=== PATIENT | female | born 1970 | race Caucasian/White ===

== ENCOUNTER → 2016-12-16 | Outpatient (CLI) | payer OTHER ==
[~2016-12-16] MED LIST: Aspirin; IBUP100SUS PO; Suboxone PO; VICO5TAB16 PO; Zyprexa PO; Zyrtec PO
== END ==
LOC: M OUTALCOH 09:51
PROVIDERS: ATTEND Psychiatry & Neurology Psychiatry
DX: F14.20 Cocaine dependence, uncomplicated (principal); F11.20 Opioid dependence, uncomplicated; F12.20 Cannabis dependence, uncomplicated

== ENCOUNTER 2017-01-13 14:00 | Outpatient (RCR) | payer OTHER | END 2017-01-14 | LOC: M OUTALCOH 14:00 | PROVIDERS: ATTEND Psychiatry & Neurology Psychiatry | DX: F14.20 Cocaine dependence, uncomplicated (principal); F12.20 Cannabis dependence, uncomplicated; F11.20 Opioid dependence, uncomplicated; F17.200 Nicotine dependence, unspecified, uncomplicated ==

== ENCOUNTER 2017-02-11 08:00 | Outpatient (RCR) | payer OTHER | END 2017-02-13 | LOC: M OUTALCOH 08:00 | PROVIDERS: ATTEND Psychiatry & Neurology Psychiatry | DX: F14.20 Cocaine dependence, uncomplicated (principal); F12.20 Cannabis dependence, uncomplicated; F11.20 Opioid dependence, uncomplicated; F17.200 Nicotine dependence, unspecified, uncomplicated ==

== ENCOUNTER → 2017-04-16 | Outpatient (CLI) | payer OTHER ==
[~2017-04-16] MED LIST changes: +AMLO2.5T PO; +ASPI81TA85 PO; +CLON0.5T PO; +GABA-283 PO; +LATU1TAB PO; +LISI40TAB PO
--- NOTE | 2017-04-16 09:14 | REP ---
Clinical: Chest pain . Comparison: 05/02/2014 . Technique: PA and lateral. Findings: The mediastinum and cardiac silhouette are normal. The lung hoffman are clear and without acute consolidation, effusion, or pneumothorax. The skeletal structures are intact and normal. Impression: 1. No acute cardiopulmonary process. Signed by Rodrigo Barboza MD 04/16/2017 09:06 A
[2017-04-16 10:25] LABS: BASO # 0.1 K/mm3 (0.0-0.2); BASO % 0.7 % (0.0-1.0); EOS # 0.2 K/mm3 (0.0-0.50); EOS % 1.7 % (0.0-3.0); LYMPH # 2.6 K/mm3 (1.5-4.5); MEAN CORPUSCULAR HEMOGLOBIN 32.2 pg (27.0-33.0); MEAN CORPUSCULAR HGB CONC 34.6 g/dl (32.0-36.5); MONO # 0.5 K/mm3 (0.0-0.8); MONO % 4.8 % (0.0-5.0); NEUTROPHILS # 6.8 K/mm3 (1.8-7.7); RED CELL DISTRIBUTION WIDTH 12.3 % (11.5-14.5); WHITE BLOOD COUNT 10.4 K/mm3 (4.0-10.0)
[2017-04-16 11:04] LABS: ALBUMIN 3.8 GM/DL (3.2-5.2); ALBUMIN/GLOBULIN RATIO 1.15 (1.00-1.93); ALKALINE PHOSPHATASE 108 U/L (45-117); ALT/SGPT 17 U/L (12-78); ANION GAP 7 MEQ/L (8-16); AST/SGOT 13 U/L (15-37); BILIRUBIN,TOTAL 0.3 MG/DL (0.2-1.0); BLOOD UREA NITROGEN 12 MG/DL (7-18); CALCIUM LEVEL 9.3 MG/DL (8.5-10.1); CARBON DIOXIDE LEVEL 27 MEQ/L (21-32); CHLORIDE LEVEL 107 MEQ/L (98-107); CHOLESTEROL LEVEL 173 MG/DL (<200); CREATININE FOR GFR 0.78 MG/DL (0.55-1.02); FERRITIN 84 NG/ML (8-252); FREE T4 1.13 NG/DL (0.76-1.46); GLOMERULAR FILTRATION RATE > 60.0 (>58); GLUCOSE, FASTING 94 MG/DL (70-105); POTASSIUM SERUM 4.7 MEQ/L (3.5-5.1); SODIUM LEVEL 141 MEQ/L (136-145); T UPTAKE 35 % (30-39); TOTAL PROTEIN 7.1 GM/DL (6.4-8.2); TRIGLYCERIDES LEVEL 75 MG/DL (<150)
--- NOTE | 2017-04-16 14:54 | ECGEPIP ---
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
[2017-04-19 00:10] LABS: Lyme Disease IgG/IgM Antibodie <0.91 ISR (0.00-0.90); Lyme Disease IgM Ab Quantitati <0.80 index (0.00-0.79)
[2017-04-21 10:32] LABS: ALBUMIN % 59.1 % (55.8-66.1); GAMMA GLOBULIN % 11.3 % (11.1-18.8)
== END ==
LOC: M LAB 08:22
PROVIDERS: ATTEND Physician Assistant Medical
DX: R07.9 Chest pain, unspecified (principal); R53.83 Other fatigue; R00.1 Bradycardia, unspecified; I25.2 Old myocardial infarction

== ENCOUNTER 2017-06-22 09:09 | Emergency (ER) | payer OTHER ==
[~2017-06-22] VITALS: Ht 163.8 cm; Wt 53.8 kg
[2017-06-22 09:09] VITALS: BP 155/90
[~2017-06-22 09:09] MED LIST changes: -AMLO2.5T PO; -ASPI81TA85 PO; -CLON0.5T PO; -GABA-283 PO; -LATU1TAB PO; -LISI40TAB PO
[2017-06-22] MEDS ORDERED: CLON0.5T PO (09:35)
[2017-06-22] MEDS ORDERED: LATU1TAB PO (09:35)
[2017-06-22] MEDS ORDERED: GABA-283 PO (09:35)
[2017-06-22] MEDS ORDERED: ASPI81TA85 PO (09:35)
[2017-06-22] MEDS ORDERED: LISI40TAB PO (09:35)
[2017-06-22] MEDS ORDERED: AMLO2.5T PO (09:35)
--- NOTE | 2017-06-22 10:05 | ED PDOC ---
Post-Departure Follow-Up PT STATES, "I'M VERY SCARED RIGHT NOW." PT STATES HAS HAD SOME BLOOD WORK DONE WITH HER PCP, DEB. RUSH, AND DID NOT FOLLOW THROUGH WITH A SPECIFIC TEST FOR MULTIPLE MYELOMA. PT STATES THE TEST WAS SENT HERE AND WANTS TO HAVE THE TESTING DONE TODAY IN THE ER. ADVISED THAT THIS IS NOT AN ER APPROPRIATE TEST AND IF THE ORDER WAS SENT TO THIS HOSPITAL, SHE SHOULD GO TO THE OUTPATIENT LAB TO HAVE THIS TEST DRAWN. PT STATES HAS FOLLOW UP WITH ALVINA RUSH THIS WEEK FROM THE BLOOD WORK SHE ALREADY HAD TAKEN. PT BELIEVES SHE HAS MULTIPLE MYELOMA BECAUSE SHE WAS BLEEDING FROM HER EARS LAST NIGHT. PT VERY ANXIOUS AND TEARFUL DURING ENCOUNTER. OSMAR LYNN PA-C Jun 22, 2017 10:05
== END 2017-06-22 10:10 | disposition home or self-care (01) ==
LOC: M ED 09:09
DX: F41.9 Anxiety disorder, unspecified (principal); H92.03 Otalgia, bilateral; I10 Essential (primary) hypertension; F31.9 Bipolar disorder, unspecified; K50.90 Crohn's disease, unspecified, without complications; Z86.73 Personal history of transient ischemic attack (TIA), and cerebral infarction without residual deficits; Z79.899 Other long term (current) drug therapy; Z79.891 Long term (current) use of opiate analgesic; Z79.82 Long term (current) use of aspirin; Z88.0 Allergy status to penicillin; Z88.7 Allergy status to serum and vaccine; L23.1 Allergic contact dermatitis due to adhesives; Z91.040 Latex allergy status; Z91.030 Bee allergy status; F17.210 Nicotine dependence, cigarettes, uncomplicated

== ENCOUNTER → 2017-07-08 | Outpatient (CLI) | payer OTHER ==
[~2017-07-08] MED LIST changes: +AMLO2.5T PO; +ASPI81TA85 PO; +CLON0.5T PO; +GABA-283 PO; +LATU1TAB PO; +LISI40TAB PO
--- NOTE | 2017-07-08 09:05 | REP ---
Complete abdominal ultrasound: The the patient has a cholecystectomy. There is no intrahepatic or extrahepatic biliary duct dilatation, the common duct measures 3.7 mm in diameter. The hepatic parenchyma is unremarkable except for A focal hyperechoic subcapsular lesion inferiorly in the midline measuring 2.4 x 1.2 cm. By ultrasound. This may be an hemangioma. On the CT of the abdomen pelvis dated 11/17/2013. No liver lesion is identified. This lesion may have been isointense to hepatic parenchyma by CT. Therefore, I would recommend follow-up MRI for further evaluation of this finding for more assurance. The visualized portion of the pancreatic head is unremarkable. The body and tail are obscured by bowel gas. The spleen is normal size. I suspect there are tiny splenic calcified granulomas. The right and left kidneys are normal size. There is no renal hydronephrosis, calculus, mass or cyst on the right on the left. There is no abdominal aortic aneurysm. There is no ascites. Impression: Cholecystectomy. No biliary duct dilatation. The body and tail of the pancreas are obscured. Hyperechoic lesion in the midline of the liver, subcapsular, not visible on the comparison CT. This could represent an hemangioma, however other hepatic masses are not absolutely excluded by ultrasound. I would recommend follow-up MRI for more assurance. Otherwise, negative complete abdominal ultrasound. No Signed by Ramo Alvarez MD 07/08/2017 08:56 A
[2017-07-08 09:44] LABS: MEAN CORPUSCULAR HEMOGLOBIN 32.8 pg (27.0-33.0); MEAN CORPUSCULAR HGB CONC 35.8 g/dl (32.0-36.5); MEAN CORPUSCULAR VOLUME 91.7 fl (80.0-96.0); RED CELL DISTRIBUTION WIDTH 12.4 % (11.5-14.5)
[2017-07-08 10:12] LABS: EOSINOPHILS 1 % (0-5)
[2017-07-08 10:13] LABS: ALBUMIN/GLOBULIN RATIO 1.38 (1.00-1.93); ALKALINE PHOSPHATASE 118 U/L (45-117); ALT/SGPT 25 U/L (12-78); ANION GAP 7 MEQ/L (8-16); AST/SGOT 15 U/L (15-37); BILIRUBIN,TOTAL 0.6 MG/DL (0.2-1.0); BLOOD UREA NITROGEN 9 MG/DL (7-18); CALCIUM LEVEL 9.1 MG/DL (8.5-10.1); CARBON DIOXIDE LEVEL 30 MEQ/L (21-32); CHLORIDE LEVEL 105 MEQ/L (98-107); CHOLESTEROL LEVEL 180 MG/DL (<200); CREATININE FOR GFR 0.79 MG/DL (0.55-1.02); FERRITIN 109 NG/ML (8-252); GLOMERULAR FILTRATION RATE > 60.0 (>58); GLUCOSE, FASTING 82 MG/DL (70-105); POTASSIUM SERUM 4.2 MEQ/L (3.5-5.1); SODIUM LEVEL 142 MEQ/L (136-145); TOTAL PROTEIN 6.9 GM/DL (6.4-8.2); TRIGLYCERIDES LEVEL 89 MG/DL (<150)
== END ==
LOC: M RAD 08:13 → M LAB 08:13
PROVIDERS: ATTEND Physician Assistant Medical
DX: R10.9 Unspecified abdominal pain (principal); R19.7 Diarrhea, unspecified

== ENCOUNTER → 2017-11-01 | Outpatient (CLI) | payer OTHER | LOC: M LAB 09:55 | DX: Z02.83 Encounter for blood-alcohol and blood-drug test (principal) | CPT/HCPCS: 80348 ==

== ENCOUNTER 2017-12-14 06:55 | Emergency (ER) | payer OTHER ==
[2017-12-14] MEDS: LORATADINE 10 MG TAB PO (08:15)
== END 2017-12-14 09:12 | disposition home or self-care (01) ==
LOC: M ED 06:55
DX: S60.561A Insect bite (nonvenomous) of right hand, initial encounter (principal); S60.562A Insect bite (nonvenomous) of left hand, initial encounter; W57.XXXA Bitten or stung by nonvenomous insect and other nonvenomous arthropods, initial encounter; Y92.018 Other place in single-family (private) house as the place of occurrence of the external cause; I10 Essential (primary) hypertension; F41.9 Anxiety disorder, unspecified; F33.9 Major depressive disorder, recurrent, unspecified; Z79.899 Other long term (current) drug therapy; Z79.82 Long term (current) use of aspirin; Z79.891 Long term (current) use of opiate analgesic; Z88.0 Allergy status to penicillin; Z88.7 Allergy status to serum and vaccine; Z91.030 Bee allergy status; Z91.040 Latex allergy status; Z91.048 Other nonmedicinal substance allergy status; F17.210 Nicotine dependence, cigarettes, uncomplicated
CPT/HCPCS: 99283

== ENCOUNTER → 2018-09-23 | Outpatient (REF) | payer OTHER ==
[2018-09-23 22:13] LABS: APPEARANCE, URINE CLOUDY (CLEAR); BACTERIA, URINE AUTO NEGATIVE (NEGATIVE); BILIRUBIN, URINE AUTO NEGATIVE (NEGATIVE); BLOOD, URINE BLOOD 2+ (NEGATIVE); COLOR, URINE AMBER (YELLOW); GLUCOSE, URINE (UA) AUTO NEGATIVE (NEGATIVE); KETONE, URINE AUTO TRACE mg/dL (NEGATIVE); LEUKOCYTE ESTERASE, URINE AUTO TRACE (NEGATIVE); MUCUS, URINE SMALL (NEGATIVE); NITRITE, URINE AUTO NEGATIVE (NEGATIVE); PROTEIN, URINE AUTO 1+ mg/dL (NEGATIVE); RBC, URINE AUTO 73 /HPF (0-3); SPECIFIC GRAVITY URINE AUTO 1.019 (1.002-1.035); SQUAMOUS EPITHELIAL CELL UR AU 4 /HPF (0-6); WBC, URINE AUTO 30 /HPF (0-3)
== END ==
LOC: M LAB REF 10:02
DX: N39.0 Urinary tract infection, site not specified (principal)
CPT/HCPCS: 81001

== ENCOUNTER 2019-07-05 00:17 | Emergency (ER) | payer OTHER ==
[~2019-07-05] VITALS: Ht 162.6 cm; Wt 53.6 kg
[~2019-07-05 00:17] MED LIST changes: -AMLO2.5T PO; +AMLO2.5T3 PO; +CLAR1TAB2 PO; -CLON0.5T PO; +CLON0.5T8 PO; -GABA-283 PO; +GABA-845 PO; +HYDR25OI TOP; +IBUP100S44 PO; -IBUP100SUS PO; +LISI40TA PO; -LISI40TAB PO
[2019-07-05 00:18] VITALS: BP 144/87
[2019-07-05] MEDS ORDERED: KETOROLAC 60 MG/2 ML VIAL (J1885) IM ONE (02:30)
[2019-07-05 02:46] LABS: APPEARANCE, URINE CLEAR (CLEAR); BACTERIA, URINE AUTO 1+ (NEGATIVE); BILIRUBIN, URINE AUTO NEGATIVE (NEGATIVE); BLOOD, URINE BLOOD NEGATIVE (NEGATIVE); COLOR, URINE YELLOW (YELLOW); GLUCOSE, URINE (UA) AUTO NEGATIVE (NEGATIVE); KETONE, URINE AUTO NEGATIVE (NEGATIVE); LEUKOCYTE ESTERASE, URINE AUTO NEGATIVE (NEGATIVE); MUCUS, URINE SMALL (NEGATIVE); NITRITE, URINE AUTO NEGATIVE (NEGATIVE); PROTEIN, URINE AUTO NEGATIVE (NEGATIVE); RBC, URINE AUTO 1 /HPF (0-3); SPECIFIC GRAVITY URINE AUTO 1.011 (1.002-1.035); SQUAMOUS EPITHELIAL CELL UR AU 2 /HPF (0-6); WBC, URINE AUTO 2 /HPF (0-3)
[2019-07-05] MEDS ORDERED: LEVA1TAB2 PO (02:54)
--- NOTE | 2019-07-05 07:27 | REP ---
Clinical: Cough . Comparison: 04/16/2017 . Technique: PA and lateral. Findings: The mediastinum and cardiac silhouette are normal. The lung hoffman are clear and without acute consolidation, effusion, or pneumothorax. The skeletal structures are intact and normal. Impression: 1. No acute cardiopulmonary process. Electronically Signed by Rodrigo Barboza MD 07/05/2019 07:18 A
== END 2019-07-05 03:34 | disposition home or self-care (01) ==
LOC: M ED 00:17
DX: J40 Bronchitis, not specified as acute or chronic (principal); I10 Essential (primary) hypertension; F31.9 Bipolar disorder, unspecified; Z79.899 Other long term (current) drug therapy; Z79.891 Long term (current) use of opiate analgesic; Z79.82 Long term (current) use of aspirin; Z88.0 Allergy status to penicillin; Z88.7 Allergy status to serum and vaccine; Z91.030 Bee allergy status; Z91.040 Latex allergy status; F17.210 Nicotine dependence, cigarettes, uncomplicated
CPT/HCPCS: 71046; 81001; 87086; 96372; 99283; J1885

== ENCOUNTER 2019-07-09 07:09 | Emergency (ER) | payer OTHER ==
[~2019-07-09] VITALS: Ht 162.6 cm; Wt 53.6 kg
[~2019-07-09 07:09] MED LIST changes: +LEVA1TAB2 PO
[2019-07-09] MEDS ORDERED: LORazepam 2 MG/ML VIAL (J2060) IV STA ×2 (07:22→10:58)
[2019-07-09] MEDS ORDERED: AMLO5TAB6 (07:24)
[2019-07-09] MEDS ORDERED: VITA500045 (07:24)
[2019-07-09] MEDS ORDERED: LISI-538 (07:24)
[2019-07-09] MEDS ORDERED: SUBO8MIS (07:24)
[2019-07-09] MEDS ORDERED: NS 500 ML IV ONE (07:30)
[2019-07-09] MEDS ORDERED: LEVA1TAB2 PO (07:40)
[2019-07-09 07:59] LABS: BASO # 0.1 10^3/uL (0.0-0.2); BASO % 0.5 % (0.0-1.0); EOS # 0.1 10^3/uL (0.0-0.5); EOS % 0.8 % (0.0-3.0); HEMATOCRIT 41.6 % (36.0-47.0); HEMOGLOBIN 14.5 g/dl (12.0-15.5); LYMPH # 3.1 10^3/uL (1.5-5.0); LYMPH % 25.5 % (24.0-44.0); MEAN CORPUSCULAR HEMOGLOBIN 31.3 pg (27.0-33.0); MEAN CORPUSCULAR HGB CONC 34.9 g/dl (32.0-36.5); MEAN CORPUSCULAR VOLUME 89.8 fl (80.0-96.0); MONO % 8.2 % (0.0-5.0); NEUTROPHILS # 7.6 10^3/uL (1.5-8.5); NEUTROPHILS % 63.2 % (36.0-66.0); PLATELET COUNT, AUTOMATED 480 10^3/uL (150-450); RED BLOOD COUNT 4.63 10^6/uL (4.00-5.40)
--- NOTE | 2019-07-09 08:19 | REP ---
Portable chest, 07:59 a.m., single AP view with the the patient sitting: Comparison is the PA and lateral chest of 07/05/2019. Lung hoffman are hyperinflated, unchanged, but otherwise clear. Cardiac size is normal. The [place], mediastinum, skeletal structures are unremarkable. Impression: Hyperinflation, unchanged, otherwise negative portable chest Electronically Signed by Ramo Alvarez MD 07/09/2019 08:11 A
[2019-07-09 08:56] LABS: ACETAMINOPHEN LEVEL < 2.0 UG/ML (10.0-30.0); ALBUMIN 3.3 GM/DL (3.2-5.2); ALT/SGPT 30 U/L (12-78); BILIRUBIN,DIRECT 0.2 MG/DL (0.0-0.2); BILIRUBIN,TOTAL 0.8 MG/DL (0.2-1.0); BLOOD UREA NITROGEN 13 MG/DL (7-18); CALCIUM LEVEL 9.3 MG/DL (8.5-10.1); CARBON DIOXIDE LEVEL 22 MEQ/L (21-32); CHLORIDE LEVEL 105 MEQ/L (98-107); CK-MB VALUE MASS 2.8 NG/ML (<3.6); CPK CREATINE PHOSPHOKINASE 131 U/L (26-192); ETHYL ALCOHOL (ETHANOL) < 0.003 % (0.000-0.010); FREE T4 1.61 NG/DL (0.76-1.46); GLOMERULAR FILTRATION RATE > 60.0 (>58); GLUCOSE, FASTING 100 MG/DL (70-100); LIPASE 61 U/L (73-393); MAGNESIUM LEVEL 0.7 MG/DL (1.8-2.4); MB/CK RELATIVE INDEX 2.14 (< OR =4); NT-PRO BNP 2922 PG/ML (<125); POTASSIUM SERUM 3.5 MEQ/L (3.5-5.1); SALICYLATE LEVEL 4.7 MG/DL (5.0-30.0); SODIUM LEVEL 137 MEQ/L (136-145); TROPONIN I 0.24 NG/ML (< 0.10)
[2019-07-09] MEDS ORDERED: MAG SULF 1GM/100ML (MAG RUN) 1 GM in IV 1 EA IV ONE ×2 (09:15→12:15)
[2019-07-09] MEDS ORDERED: CLOPIDOGREL 300 MG TAB (PLAVIX) PO STA ×2 (09:28→13:56)
[2019-07-09] MEDS ORDERED: FUROSEMIDE 20 MG/2 ML VIAL (J1940) IV ONE (09:30)
[2019-07-09] MEDS ORDERED: ASPIRIN 81 MG CHEW TABLET PO ONE (09:30)
[2019-07-09 09:51] LABS: AMPHETAMINES LEVEL URINE POSITIVE (NEGATIVE); BARBITURATES URINE NEGATIVE (NEGATIVE); BENZODIAZEPINES URINE NEGATIVE (NEGATIVE); CANNABINOIDS URINE POSITIVE (NEGATIVE); COCAINE METABOLITE URINE POSITIVE (NEGATIVE); METHADONE URINE NEGATIVE (NEGATIVE); OPIATES URINE NEGATIVE (NEGATIVE); PHENCYCLIDINE URINE NEGATIVE (NEGATIVE)
--- NOTE | 2019-07-09 09:58 | REP ---
Head CT without contrast: History: Altered mental status. Comparison study: October 06, 2009. CT findings: Bone window settings demonstrate an intact bony calvarium. There is no evidence of skull fracture or incidental bony calvarial lesion. The visualized paranasal sinuses appear clear. No intraorbital abnormality is seen. On soft tissue window setting images; the lateral, third, and fourth ventricles are normal in size and position. Burnett-white differentiation pattern is normal above and below the tentorium. There are is no evidence of intracranial hemorrhage. No mass, edema, infarction, or midline shift is seen. No extra-axial fluid collection is appreciated. Impression: Negative noncontrast head CT. Electronically Signed by Chidi Ernst MD 07/09/2019 09:50 A
[2019-07-09 11:45] LABS: CK-MB VALUE MASS 3.6 NG/ML (<3.6); MB/CK RELATIVE INDEX 2.63 (< OR =4); TROPONIN I 0.39 NG/ML (< 0.10)
--- NOTE | 2019-07-09 12:21 | ECHO ---
DATE OF STUDY: 07/09/2019 REFERRING PHYSICIAN: Dr. Burnett, emergency room. INDICATION: Chest pain, elevated troponin. HEIGHT: 163 cm. WEIGHT: 54 kg. DIMENSIONS: IVS: 0.8 LV: 5.3 LVPW: 1.1 LA: 3.0 Aorta: 3.1 IVC: 1.7 Mitral E wave velocity: 80 A wave: 76 E prime septal: 5.0 E prime lateral: 5.5 FINDINGS: The study is of acceptable technical quality. The patient is in sinus rhythm. Left ventricle is normal size. There is a wall motion abnormality involving the mid and distal septum, distal anterior wall and apex. These segments are severely hypokinetic. Remaining LV segments have relatively preserved mobility even though distal inferior wall is also at least mildly hypokinetic. Overall estimated ejection fraction (EF) is around 40%. Right ventricle is normal size and appears to have normal systolic function. Both atria are normal. Aortic, mitral and tricuspid valves were well seen and appear normal. Pulmonic valve was not visualized. No pericardial effusion is noted. Inferior vena cava is normal size. Doppler interrogation reveals a competent aortic valve. There is mild mitral insufficiency. No tricuspid insufficiency seen. Mitral inflow pattern and tissue Doppler imaging of mitral annulus reveal grade 2 diastolic dysfunction. CONCLUSIONS: 1. Study is of acceptable technical quality. 2. Normal LV size with segmental wall motion abnormality as described above and overall moderate left ventricular systolic dysfunction. Grade 2 diastolic dysfunction. 3. No hemodynamically significant valvular disease. 3. Normal central venous pressure. 5. Unable to estimate pulmonary artery pressure. COMMENTS: Subacute bacterial endocarditis (SBE) prophylaxis is not recommended. The study is most consistent with ischemic cardiomyopathy, even though "Takotsubo cardiomyopathy" can be also considered in differential diagnosis. The study results were communicated to Dr. Burnett in the emergency room.
[2019-07-09] MEDS ORDERED: NICOTINE 21MG/24HR 1 EA TRANSDERMAL TD ONE (13:15)
[2019-07-09] MEDS ORDERED: HEPARIN DRIP 25,000 UNITS in IV 1 EA IV SCH (13:57)
[2019-07-09] MEDS ORDERED: HEPARIN SOD (PORCINE) 5000 UNITS/ML VIAL IV ONE (14:00)
[2019-07-09] MEDS ORDERED: BUPRENORPHINE/NALOXONE 8-2MG SUBLINGUAL TABLET(SUBOXONE) SL ONE (14:00)
[2019-07-09 15:07] VITALS: BP 167/98
--- NOTE | 2019-07-09 21:30 | ECGEPIP ---
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
--- NOTE | 2019-07-09 21:40 | ECGEPIP ---
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
== END 2019-07-09 15:12 | disposition short-term general hospital (02) ==
LOC: M ED 07:09
DX: R07.89 Other chest pain (principal); R41.82 Altered mental status, unspecified; I11.0 Hypertensive heart disease with heart failure; F31.9 Bipolar disorder, unspecified; I50.9 Heart failure, unspecified; E83.42 Hypomagnesemia; Z88.0 Allergy status to penicillin; Z88.7 Allergy status to serum and vaccine; Z91.030 Bee allergy status; Z91.040 Latex allergy status; Z91.048 Other nonmedicinal substance allergy status; Z79.82 Long term (current) use of aspirin; Z79.899 Other long term (current) drug therapy
CPT/HCPCS: 70450; 71045; 80048; 80076; 80307; 82550; 82553; 83690; 83735; 83880; 84439; 84443; 85025; 87040; 93005; 93041; 93306; 94760; 96374; 96375; 96376; 99285; G0480; J1940; J2060; J3475

== ENCOUNTER 2020-12-25 14:26 | Emergency (ER) | payer MEDICAID, OTHER ==
[~2020-12-25] VITALS: Ht 162.6 cm; Wt 56.7 kg
[~2020-12-25 14:26] MED LIST changes: +AMLO1TAB24 PO; -ASPI81TA85 PO; +ASPI81TA86 PO; +CLON0.5T2 PO; -CLON0.5T8 PO; +LISI20TA33 PO; -LISI40TA PO; +LISI40TA4 PO; +SUBO8MIS SL; +VITA500045
[2020-12-25] MEDS ORDERED: PLAV1TAB2 PO ×2 (14:45→17:58)
--- NOTE | 2020-12-25 15:13 | REP ---
INDICATION: CHEST PAIN COMPARISON: 07/09/2019 TECHNIQUE: Portable AP view of the chest FINDINGS: The mediastinum and cardiac silhouette are stable and within normal limits for portable technique. The lung hoffman are clear without acute consolidation, effusion, or pneumothorax. Skeletal structures are intact. IMPRESSION: No acute cardiopulmonary process appreciated. <Electronically signed by Rodrigo Barboza > 12/25/20 [id number]
[2020-12-25 15:42] LABS: BASO % 0.3 % (0.0-1.0); EOS % 0.3 % (0.0-3.0); HEMATOCRIT 43.5 % (36.0-47.0); LYMPH # 2.1 10^3/uL (1.5-5.0); LYMPH % 17.5 % (24.0-44.0); MEAN CORPUSCULAR HEMOGLOBIN 31.8 pg (27.0-33.0); MEAN CORPUSCULAR HGB CONC 34.5 g/dl (32.0-36.5); MEAN CORPUSCULAR VOLUME 92.2 fl (80.0-96.0); MONO # 0.6 10^3/uL (0.0-0.8); MONO % 5.4 % (2.0-8.0); NEUTROPHILS # 8.9 10^3/uL (1.5-8.5); NEUTROPHILS % 76.1 % (36.0-66.0); PLATELET COUNT, AUTOMATED 282 10^3/uL (150-450); RED BLOOD COUNT 4.72 10^6/uL (4.00-5.40); WHITE BLOOD COUNT 11.7 10^3/uL (4.0-10.0)
[2020-12-25 15:47] LABS: INR 0.93; PROTHROMBIN TIME 12.7 SECONDS (12.5-14.3)
[2020-12-25 16:12] LABS: AMPHETAMINES LEVEL URINE NEGATIVE (NEGATIVE); BARBITURATES URINE NEGATIVE (NEGATIVE); BENZODIAZEPINES URINE NEGATIVE (NEGATIVE); CANNABINOIDS URINE POSITIVE (NEGATIVE); COCAINE METABOLITE URINE NEGATIVE (NEGATIVE); METHADONE URINE NEGATIVE (NEGATIVE); OPIATES URINE NEGATIVE (NEGATIVE); PHENCYCLIDINE URINE NEGATIVE (NEGATIVE)
[2020-12-25 16:19] LABS: ALBUMIN 4.5 GM/DL (3.2-5.2); ALT/SGPT 77 U/L (12-78); BILIRUBIN,DIRECT 0.2 MG/DL (0.0-0.2); BILIRUBIN,TOTAL 0.5 MG/DL (0.2-1.0); BLOOD UREA NITROGEN 11 MG/DL (7-18); CALCIUM LEVEL 9.6 MG/DL (8.5-10.1); CARBON DIOXIDE LEVEL 28 MEQ/L (21-32); CHLORIDE LEVEL 105 MEQ/L (98-107); CK-MB VALUE MASS 1.5 NG/ML (<3.6); CPK CREATINE PHOSPHOKINASE 109 U/L (26-192); CREATININE FOR GFR 1.09 MG/DL (0.55-1.30); FREE T4 0.97 NG/DL (0.76-1.46); GLOMERULAR FILTRATION RATE 56.8 (>58); GLUCOSE, FASTING 107 MG/DL (70-100); MAGNESIUM LEVEL 2.1 MG/DL (1.8-2.4); MB/CK RELATIVE INDEX 1.38 (< OR =4); POTASSIUM SERUM 3.8 MEQ/L (3.5-5.1); SODIUM LEVEL 138 MEQ/L (136-145); TOTAL PROTEIN 7.3 GM/DL (6.4-8.2); TROPONIN I < 0.02 NG/ML (< 0.10)
[2020-12-25 16:23] LABS: ERYTHROCYTE SEDIMENTATION RATE 2 mm/hr (0-20)
[2020-12-25 16:52] LABS: D-DIMER QUANT < 270 ng/ml (<500)
[2020-12-25 17:00] VITALS: BP 149/67
--- NOTE | 2020-12-25 17:35 | ECGEPIP ---
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
[2020-12-25] MEDS ORDERED: LISI20TA33 PO (17:58)
== END 2020-12-25 18:08 | disposition home or self-care (01) ==
LOC: M ED 14:26
DX: R00.2 Palpitations (principal); I50.9 Heart failure, unspecified; I10 Essential (primary) hypertension; I25.2 Old myocardial infarction; Z86.73 Personal history of transient ischemic attack (TIA), and cerebral infarction without residual deficits; F17.200 Nicotine dependence, unspecified, uncomplicated; F19.10 Other psychoactive substance abuse, uncomplicated; Z79.82 Long term (current) use of aspirin; Z79.899 Other long term (current) drug therapy; Z88.0 Allergy status to penicillin; Z91.89 Other specified personal risk factors, not elsewhere classified; Z91.040 Latex allergy status; Z88.7 Allergy status to serum and vaccine; Z91.030 Bee allergy status

== ENCOUNTER → 2021-04-29 | Outpatient (CLI) | payer OTHER ==
[~2021-04-29] MED LIST changes: +GABA-283 PO; -GABA-845 PO; +PLAV1TAB2 PO
--- NOTE | 2021-04-29 10:27 | REP ---
INDICATION: COPD *EKG 1ST, XRAY 2ND* COMPARISON: 07/09/2019, 12/25/2020 TECHNIQUE: PA and lateral. FINDINGS: The mediastinum and cardiac silhouette are normal. The lung hoffman are clear and without acute consolidation, effusion, or pneumothorax. The skeletal structures are intact and normal. IMPRESSION: No acute cardiopulmonary process. <Electronically signed by Rodrigo Barboza > 04/29/21 [id number]
== END ==
LOC: M EKG 09:48
PROVIDERS: ATTEND Family Medicine
DX: J44.9 Chronic obstructive pulmonary disease, unspecified (principal); R53.83 Other fatigue; E03.9 Hypothyroidism, unspecified

== ENCOUNTER 2021-08-28 15:57 | Emergency (ER) | payer OTHER ==
[~2021-08-28] VITALS: Ht 162.6 cm; Wt 52.7 kg
--- NOTE | 2021-08-28 16:44 | REP ---
INDICATION: CHEST PAIN. COMPARISON: 04/29/2021. TECHNIQUE: AP portable seated. FINDINGS: Lungs are hyperinflated. There is no pleural effusion, lateral pleural thickening, apical scarring or pneumothorax. No infiltrate, atelectasis or mass. The heart, mediastinal and hilar contours were normal and unchanged. The aorta is normal for age. Airway midline. No mediastinal or hilar mass. Bones without acute finding. IMPRESSION: 1. Some hyperinflation without acute cardiopulmonary change. Stable chest. <Electronically signed by Ruiz Gardner > 08/28/21 [id number]
--- OUTSIDE RECORDS SUMMARY | 2021-08-28 17:02 | CCD ---
Author Organization Unknown Address [address] [place] [address] Phone [phone] Care Team Providers Care Bus Boy Name Role Phone CastanedaEric Unavailable Unavailable Allergies Code Code System Name Reaction Severity Status Onset Bee Venom Protein (Honey Bee) Active 05/30/2013 Penicillin Active 3 Tetanus Toxoid Active 05/30 Notes: TETANUS | PCN - Reaction: hives | BEE STINGS - Reaction: airway closes Medications Name Status Start Date Stop Date albuterol sulfate HFA 90 mcg/actuation a erosol inhaler INHALE TWO PUFFS BY MOUTH FOUR TIMES A DAY Active Not available amlodipine 5 mg tablet TAKE ONE TABLET BY MOUTH EVERY DAY Active Not available aspirin 81 mg tablet,delayed release TAKE ONE TABLET BY MOUTH EVERY DAY Active Not available Astringent 952 mg-1,347 mg topical powde r in packet SOAK DAILY FOR 10 20 MINUTES FOR 7 DAYS Active Not available atorvastatin 20 mg tablet TAKE ONE TABLET BY MOUTH EVERY DAY Active Not available buprenorphine 8 mg-naloxone 2 mg subling ual film PLACE ONE FILM UNDER THE TONGUE TWICE A DAY MAXIMUM DAILY DOSE 2 Active Not available clopidogrel 75 mg tablet TAKE ONE TABLET BY MOUTH EVERY DAY Active Not available clotrimazole 1 % topical cream APPLY TO AFFECTED AREA S TWO TIMES A DAY TO LEFT LEG Active Not available ergocalciferol (vitamin D2) 1,250 mcg (5 0,000 unit) capsule TAKE ONE CAPSULE BY MOUTH WEEKLY Active Not av ailable hydroxyzine pamoate 25 mg capsule TAKE ONE CAPSULE BY MOUTH THREE TIMES A DAY Active Not available lisinopril 20 mg tablet TAKE ONE TABLET BY MOUTH EVERY DAY Active Not available lisinopril 40 mg tablet Active Not avai lable metformin 500 mg tablet TAKE ONE TABLET BY MOUTH TWICE A DAY WITH MEALS Active Not available topiramate 25 mg tablet TAKE ONE TABLET BY MOUTH TWICE A DAY Active No t available Problems Name Status Onset Date Source Vitamin D Deficiency Active 05/30/2013 History Bipolar Disorder Active 05/30/2013 History Psychoactive Substance Dependence Active 05/30/2013 History Visual Impairment Active 05/30/2013 History Degeneration of Lumbar Intervertebral Disc Active 05/30 History Localized Enlarged Lymph Nodes Active 05/30/2013 H istory Evaluation Procedure Active 05/30/2013 History Cyst of Bartholin's Gland Duct Active 06/22/2013 H istory Contusion of Buttock Active 07/16/2013 History Hyperlipidemia Active 03/26/2015 History Hypertensive Disorder Active 03/26/2015 History Clinical Finding Active 03/26/2015 History Pain in Thumb Active 11/06/2015 History Disorder of Skin And/or Subcutaneous Tissue Active 10/18 History Negative Dysphotopsia Active 12/30/2015 History Opioid Dependence in Remission Active 01/03/2018 H istory Heart Failure Active 07/13/2019 History Clinical Finding Active 07/13/2019 History Finding by Site Active 09/10/2019 History Tobacco User Active 08/10/[address] Segment Elevation Myocardial Infarction Active History Crohn's Disease Active History SNOMED CT Concept Active History Procedures Notes: Cholecystectomy, emergency surger y after gallbladder removed, Tubal ligation, Lapraoscopy, Results Lab Results None recorded. Past Encounters 08/10/2021 Opioid Dependence in Remission; Hypertensive Disorder; Tobacco User Eric Castaneda MD: [address] [place] [phone], Ph. Social History Tobacco Smoking Status Light Tobacco Smoker (1/4 pack per da y) Vaccine List None recorded. Plan of Care Reminders Provider Appointments None recorded. Lab None recorded. Referral None recorded. Procedures None recorded. Surgeries None recorded. Imaging None recorded. Vitals 08/10/2021 10:20AM MAT Height Weight BMI Blood Pressure 64 in 119 lbs 4 oz 20.5 kg/m2 (1) 180/97 mm[ Hg] (2) 182/86 mm[Hg] 09/10/2019 Height Weight BMI Blood Pressure 65.5 in 121 lbs 19.90 kg/m2 138/83 mm[Hg] 07/13/2019 Height Weight BMI Blood Pressure 65.5 in 110 lbs 8 oz 18.17 kg/m2 125/75 mm[Hg]"
--- OUTSIDE RECORDS SUMMARY | 2021-08-28 17:02 | CCD ---
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 Active Not available metformin 500 mg tablet TAKE ONE TABLET BY MOUTH TWICE A DAY WITH MEALS Active Not available nicotine (polacrilex) 2 mg buccal lozeng e Take 1 tablet every 8 hours by oral route as needed. Active Not available nicotine 14 mg/24 hr daily transdermal p atch Apply 1 patch every day by transdermal route. Active Not available topiramate 25 mg tablet [...] removed, Tubal ligation, Lapraoscopy, Results Lab Results Date Name Specimen Result Interpretation Description Value Range Status Address 08/10/2021 Drug of Abuse Panel, Urine No observation recorded. [facility] (Lab): [address], [place] Past Encounters 08/18/2021 Tobacco User; Opioid Dependence in Remission; Hypertensive Disorder; Dyspareunia Eric Castaneda MD: [address] [place] [phone], Ph. 08/10/2021 Opioid Dependence in Remission; Hypertensive Disorder; Tobacco User Eirc Castaneda MD: [address] [place] [phone], Ph. Social History Tobacco Smoking Status Light Tobacco Smoker (1/4 pack per da y) Vaccine List None recorded. Plan of Care Reminders Provider Appointments None recorded. Lab None recorded. Referral None recorded. Procedures None recorded. Surgeries None recorded. Imaging None recorded. Vitals 08/18/2021 01:40PM MAT Height Weight BMI Blood Pressure 64 in 116 lbs 8 oz 20 kg/m2 (1) 144/91 mm[ Hg] (2) 140/80 mm[Hg] 08/10/2021 10:20AM MAT Height Weight BMI Blood Pressure 64 in 119 lbs 4 oz 20.5 kg/m2 (1) 180/97 mm[ Hg] (2) 182/86 mm[Hg] 09/10/2019 Height Weight BMI Blood Pressure 65.5 in 121 lbs 19.90 kg/m2 138/83 mm[Hg] 07/13/2019 Height Weight BMI Blood Pressure 65.5 in 110 lbs 8 oz 18.17 kg/m2 125/75 mm[Hg]"
--- OUTSIDE RECORDS SUMMARY | 2021-08-28 17:02 | CCD ---
Author Author [facility] Address Unknown Phone Unavailable Support Name Relationship Address Phone ASHLEYDeng DEUCE Next Of Kin [address] [facility] [address] [place] [address] ROCKY RODRIGUEZ Next [place], [place] [address] JACOBO DOMINGUEZ Next Of Kin Unknown Unavailable JOHN JONES Next Of Kin [address] [place], [place] [id number] Eric Castaneda MD Next Of Kin [address] [place] [address] VIOLET EVERETT Next Of Kin [address] [place] [address] JRECK [place] [address] I[facility]CS[facility] Next Of Kin [address] [place] [address] IHC Next Of Kin Unknown Unavailable DEE DEE GUILLERMO Next Of Kin [address] [place] [address] THE ALVINA MORIAH Next Of Kin Unknown Unavailable MOIRA EVERETT Next Of Kin [address] [place] [address] Kathleen Aguilera Next Of Kin [address] [place] [address] UN Next Of Kin Unknown Unavailable CONTACT, OTHER NO Next Of Kin - - -, [place] - - JONG CRISOSTOMO Next Of Kin [address] [place] [address] JACOBO SKELTON Next Of Kin [address] [place] [address] UE Next Of Kin Unknown Unavailable LINDA SUAREZ Next Of Kin [address] [facility] [address] [place] [id number] DEUCE SANTACRUZ ECON [address] [place] [address] Unavailable Care Team Providers Care Barrel Bander Name Role Phone Caden Castaneda MD Unavailable Unavailable Caden Castaneda MD Unavailable Unavailable Caden Castaneda MD Unavailable Unavailable Caden Castaneda MD Unavailable Unavailable Caden Castaneda MD Unavailable Unavailable Caden Castaneda MD Unavailable Unavailable Caden Castaneda MD Unavailable Unavailable Caden Castaneda MD Unavailable Unavailable Caden Castaneda MD Unavailable Unavailable Caden Castaneda MD Unavailable Unavailable Caden Castaneda MD Unavailable Unavailable Caden Castaneda MD Unavailable Unavailable Caden Castaneda MD Unavailable Unavailable Caden Castaneda MD Unavailable Unavailable Caden Castaneda MD Unavailable Unavailable Caden Castaneda MD Unavailable Unavailable Caden Castaneda MD Unavailable Unavailable Caden Castaneda MD Unavailable Unavailable Caden Castaneda MD Unavailable Unavailable Caden Castaneda MD Unavailable Unavailable Caden Castaneda MD Unavailable Unavailable Caden Castaneda MD Unavailable Unavailable Caden Castaneda MD Unavailable Unavailable Caden Castaneda MD Unavailable Unavailable Caden Castaneda MD Unavailable Unavailable Caden Castaneda MD Unavailable Unavailable Caden Castaneda MD Unavailable Unavailable Caden Castaneda MD Unavailable Unavailable Caden Castaneda MD Unavailable Unavailable Caden Castaneda MD Unavailable Unavailable Caden Castaneda MD Unavailable Unavailable Caden Castaneda MD Unavailable Unavailable Caden Castaneda MD Unavailable Unavailable Caden Castaneda MD Unavailable Unavailable Caden Castaneda MD Unavailable Unavailable Caden Castaneda MD Unavailable Unavailable Caden Castaneda MD Unavailable Unavailable Caden Castaneda MD Unavailable Unavailable Caden Castaneda MD Unavailable Unavailable Caden Castaneda MD Unavailable Unavailable Caden Castaneda MD Unavailable Unavailable Caden Castaneda MD Unavailable Unavailable Caden Castaneda MD Unavailable Unavailable Caden Castaneda MD Unavailable Unavailable Caden Castaneda MD Unavailable Unavailable Caden Castaneda MD Unavailable Unavailable Caden Castaneda MD Unavailable Unavailable Caden Castaneda MD Unavailable Unavailable Caden Castaneda MD Unavailable Unavailable Caden Castaneda MD Unavailable Unavailable Caden Castaneda MD Unavailable Unavailable Caden Castaneda MD Unavailable Unavailable Caden Castaneda MD Unavailable Unavailable Caden Castaneda MD Unavailable Unavailable Caden Castaneda MD Unavailable Unavailable Caden Castaneda MD Unavailable Unavailable Caden Castaneda MD Unavailable Unavailable Caden Castaneda MD Unavailable Unavailable Caden Castaneda MD Unavailable Unavailable Caden Catsaneda MD Unavailable Unavailable Caden Castaneda MD Unavailable Unavailable Caden Castaneda MD Unavailable Unavailable Caden Castaneda MD Unavailable Unavailable Caden Castaneda MD Unavailable Unavailable Caden Castaneda MD Unavailable Unavailable Castaneda, D Eric MD Unavailable Unavailable Castaneda, D Eric MD Unavailable Unavailable Castaneda, D Eric MD Unavailable Unavailable Castaneda, D Eric MD Unavailable Unavailable Castaneda, D Eric MD Unavailable Unavailable Castaneda, D Eric MD Unavailable Unavailable Castaneda, D Eric MD Unavailable Unavailable Castaneda, D Eric MD Unavailable Unavailable Castaneda, D Eric MD Unavailable Unavailable Castaneda, D Eric MD Unavailable Unavailable Castaneda, D Eric MD Unavailable Unavailable Castaneda, D Eric MD Unavailable Unavailable Castaneda, D Eric MD Unavailable Unavailable Castaneda, D Eric MD Unavailable Unavailable Castaneda, D Eric MD Unavailable Unavailable Castaneda, D Eric MD Unavailable Unavailable Castaneda, D Eric MD Unavailable Unavailable Castaneda, D Eric MD Unavailable Unavailable Castaneda, D Eric MD Unavailable Unavailable Castaneda, D Eric MD Unavailable Unavailable Castaneda, D Eric MD Unavailable Unavailable Castaneda, D Eric MD Unavailable Unavailable Castaneda, D Eric MD Unavailable Unavailable Castaneda, D Eric MD Unavailable Unavailable Castaneda, D Eric MD Unavailable Unavailable Castaneda, D Eric MD Unavailable Unavailable Castaneda, D Eric MD Unavailable Unavailable Castaneda, D Eric MD Unavailable Unavailable Re-disclosure Warning The records that you are about to access may contain information from federally-assisted alcohol or drug abuse programs. If such information is present, then the following federally mandated warning applies: This information has been disclosed to you from records protected by federal confidentiality rules (42 CFR part 2). The federal rules prohibit you from making any further disclosure of this information unless further disclosure is expressly permitted by the written consent of the person to whom it pertains or as otherwise permitted by 42 CFR part 2. A general authorization for the release of medical or other information is NOT sufficient for this purpose. The Federal rules restrict any use of the information to criminally investigate or prosecute any alcohol or drug abuse patient.The records that you are about to access may contain highly sensitive health information, the redisclosure of which is protected by Article 27-F of the [facility] Public Health law. If you continue you may have access to information: Regarding HIV / AIDS; Provided by facilities licensed or operated by the [facility] Office of Mental Health; or Provided by the [facility] Office for People With Developmental Disabilities. If such information is present, then the following [facility] mandated warning applies: This information has been disclosed to you from confidential records which are protected by state law. State law prohibits you from making any further disclosure of this information without the specific written consent of the person to whom it pertains, or as otherwise permitted by law. Any unauthorized further disclosure in violation of state law may result in a fine or snf sentence or both. A general authorization for the release of medical or other information is NOT sufficient authorization for further disc losure. Encounters Encounter Providers Location Date Indications Data Source(s ) Eric Castaneda MD: [address] [place] [address], Ph. Attender: Eric Castaneda MD [facility] Medical 08/18/2021 12:00:00 AM EDT [facility] ([facility]) Eric Castaneda MD: [address] [place] [address], Ph. Attender: Eric Castaneda MD [facility] Medical 08/10/2021 12:00:00 AM EDT ZHANNA ([facility]) Eric Castaneda MD: [address] [place] [phone], Ph. Attender: Eric Castaneda MD [facility] Medical 08/10/2021 12:00:00 AM EDT [facility] ([facility]) Unknown [address] [facility] [place] [address] 02/06/2021 12:00:00 AM EDT eCW1 ([facility]) Unknown [address] [facility] [place] [address] 01/14/2021 12:00:00 AM EDT eCW1 ([facility]) Outpatient [address] [facility] [place] [address] 01/13/2021 12:00:00 AM EDT eCW1 ([facility]) Immunizations Vaccine Date Status Description Data Source(s) COVID-19 VACCINE Tru 01/26/2021 12:00:00 AM EDT completed [facility] Complete: YESThis Data wa s Submitted to [facility]. Medications Medication Brand Name Start Date Product Form Dose Route Admi nistrative Instructions Pharmacy Instructions Status Indications Reaction Description Data Source(s) 5 mg 08/20/2021 12:00:00 AM EDT tablet 30 TAKE ONE TABLET BY MOUTH EVERY DAY TAKE ONE TABLET BY MOUTH EVERY DAY SOLD: 08/20/2021 [facility] 14 mg/24 hr 08/18/2021 12:00:00 AM EDT patch 24 hour 28 APPLY 1 PATCH TOPICALLY EVERY DAY APPLY 1 PATCH TOPICALLY EVERY DAY SOLD: 08/18/2021 [facility] 2 mg 08/18/2021 12:00:00 AM EDT lozenge 72 TAKE 1 TABLET BY MOUTH EVERY 8 HOURS NEEDED TAKE 1 TABLET BY MOUTH EVERY 8 HOURS NEEDED SOLD: 021 [facility] 40 mg 08/18/2021 12:00:00 AM EDT tablet 30 TAKE ONE TABLET BY MOUTH EVERY DAY TAKE ONE TABLET BY MOUTH EVERY DAY SOLD: 08/18/2021 [facility] 8-2 mg 08/18/2021 12:00:00 AM EDT film 28 PLACE ONE FILM UNDER THE TONGUE TWICE A DAY MAXIMUM DAILY DOSE = 2 PLACE ONE FILM UNDER THE TONGUE TWICE A DAY MAXIMUM DAILY DOSE = 2 SOLD: 08/18/2021 [facility] 8-2 mg 08/10/2021 12:00:00 AM EDT film 14 PLACE ONE FILM UNDER THE TONGUE TWICE A DAY MAXIMUM DAILY DOSE = [address] ONE FILM UNDER THE TONGUE TWICE A DAY MAXIMUM DAILY DOSE = 2 FILMS SOLD: 08/10/2021 [facility] 25 mg 07/27/2021 12:00:00 AM EDT capsule 90 TAKE ONE CAPSULE BY MOUTH THREE TIMES A DAY TAKE ONE CAPSULE BY MOUTH THREE TIMES A DAY SOLD: 07/27/2021 [facility] 5 mg 06/04/2021 12:00:00 AM EDT tablet 90 TAKE ONE TABLET BY MOUTH EVERY DAY TAKE ONE TABLET BY MOUTH EVERY DAY SOLD: 06/04/2021 [facility] atorvastatin 20 MG Oral Tablet ATORVASTATIN CALCIUM 06/04/2021 1 2:00:00 AM EDT tablet 90 TAKE ONE TABLET BY MOUTH EVERY D AY TAKE ONE TABLET BY MOUTH EVERY DAY SOLD: 06/04/2021 [facility] 20 mg 06/04/2021 12:00:00 AM EDT tablet 90 TAKE ONE TABLET BY MOUTH EVERY DAY TAKE ONE TABLET BY MOUTH EVERY DAY SOLD: 06/04/2021 [facility] 75 mg 06/04/2021 12:00:00 AM EDT tablet 90 TAKE ONE TABLET BY MOUTH EVERY DAY TAKE ONE TABLET BY MOUTH EVERY DAY SOLD: 06/04/2021 [facility] 90 mcg/actuation 05/15/2021 12:00:00 AM EDT HFA aerosol inha ler 8 INHALE TWO PUFFS BY MOUTH FOUR TIMES A DAY INHALE TWO PUFFS BY MOUTH FOUR TIMES A DAY SOLD: 07/25/2021 [facility] 1,250 mcg (50,000 unit) 05/15/2021 12:00:00 AM EDT capsule 12 TAKE ONE CAPSULE BY MOUTH WEEKLY TAKE ONE CAPSULE BY MOUTH WEEKLY SOLD: 05/18/2021 [facility] 25 mg 05/15/2021 12:00:00 AM EDT capsule 90 TAKE ONE CAPSULE BY MOUTH THREE TIMES A DAY TAKE ONE CAPSULE BY MOUTH THREE TIMES A DAY SOLD: 05/18/2021 [facility] 90 mcg/actuation 05/15/2021 12:00:00 AM EDT HFA aerosol inha ler 8 INHALE TWO PUFFS BY MOUTH FOUR TIMES A DAY INHALE TWO PUFFS BY MOUTH FOUR TIMES A DAY SOLD: 05/18/2021 [facility] 1 % 04/14/2021 12:00:00 AM EDT cream 30 APPLY TO AFFECTED AREA(S) TWO TIMES A DAY TO LEFT LEG APPLY TO AFFECTED AREA(S) TWO TIMES A DAY TO LEFT LEG SOLD: 04/21/2021 [facility] 500 mg 03/17/2021 12:00:00 AM EDT tablet 60 TAKE ONE TABLET BY MOUTH TWICE A DAY WITH MEALS TAKE ONE TABLET BY MOUTH TWICE A DAY WITH MEALS SOLD: 2020 [facility] 8-2 mg 03/17/2021 12:00:00 AM EDT film 60 [address] ONE FILM UNDER THE TONGUE TWICE A DAY MAXIMUM DAILY DOSE = 2 PLACE ONE FILM UNDER THE TONGUE TWICE A DAY MAXIMUM DAILY DOSE = 2 SOLD: 03/18/2021 [facility] 25 mg 03/17/2021 12:00:00 AM EDT tablet 60 TAKE ONE TABLET BY MOUTH TWICE A DAY TAKE ONE TABLET BY MOUTH TWICE A DAY SOLD: 03/18/2021 [facility] 20 mg 03/17/2021 12:00:00 AM EDT tablet 90 TAKE ONE TABLET BY MOUTH EVERY DAY TAKE ONE TABLET BY MOUTH EVERY DAY SOLD: 03/18/2021 [facility] 90 mcg/actuation 03/13/2021 12:00:00 AM EDT HFA aerosol inha ler 18 INHALE TWO PUFFS BY MOUTH FOUR TIMES A DAY INHALE TWO PUFFS BY MOUTH FOUR TIMES A DAY SOLD: 03/14/2021 [facility] 75 mg 03/13/2021 12:00:00 AM EDT tablet 90 TAKE ONE TABLET BY MOUTH EVERY DAY TAKE ONE TABLET BY MOUTH EVERY DAY SOLD: 03/14/2021 [facility] 5 mg 03/13/2021 12:00:00 AM EDT tablet 90 TAKE ONE TABLET BY MOUTH EVERY DAY TAKE ONE TABLET BY MOUTH EVERY DAY SOLD: 03/14/2021 [facility] atorvastatin 20 MG Oral Tablet ATORVASTATIN CALCIUM 03/13/2021 1 2:00:00 AM EDT tablet 90 TAKE ONE TABLET BY MOUTH EVERY D AY TAKE ONE TABLET BY MOUTH EVERY DAY SOLD: 03/14/2021 [facility] 25 mg 03/13/2021 12:00:00 AM EDT capsule 90 TAKE ONE CAPSULE BY MOUTH THREE TIMES A DAY TAKE ONE CAPSULE BY MOUTH THREE TIMES A DAY SOLD: 03/14/2021 [facility] 20 mg 02/19/2021 12:00:00 AM EDT tablet 30 TAKE ONE TABLET BY MOUTH EVERY DAY TAKE ONE TABLET BY MOUTH EVERY DAY SOLD: 02/20/2021 [facility] 75 mg 01/25/2021 12:00:00 AM EDT tablet 7 TAKE ONE TABLET BY MOUTH EVERY DAY TAKE ONE TABLET BY MOUTH EVERY DAY SOLD: 01/25/2021 [facility] 8-2 mg 01/16/2021 12:00:00 AM EDT film [address] ONE FILM UNDER THE TONGUE TWICE A DAY MAXIMUM DAILY DOSE = [address] ONE FILM UNDER THE TONGUE TWICE A DAY MAXIMUM DAILY DOSE = 2 FILMS SOLD: 01/16/2021 [facility] atorvastatin 20 MG Oral Tablet ATORVASTATIN CALCIUM 01/15/2021 1 2:00:00 AM EDT tablet 30 TAKE ONE TABLET BY MOUTH EVERY D AY TAKE ONE TABLET BY MOUTH EVERY DAY SOLD: 01/16/2021 [facility] 952-1,347 mg 01/15/2021 12:00:00 AM EDT powder in packet 12 SOAK DAILY FOR 10-20 MINUTES FOR 7 DAYS SOAK DAILY FOR 10-20 MINUTES FOR 7 DAYS SOLD: 01/16/2021 [facility] 5 mg 01/15/2021 12:00:00 AM EDT tablet 30 TAKE ONE TABLET BY MOUTH EVERY DAY TAKE ONE TABLET BY MOUTH EVERY DAY SOLD: 01/16/2021 [facility] 81 mg 01/15/2021 12:00:00 AM EDT tablet,delayed release (DR/EC) 30 TAKE ONE TABLET BY MOUTH EVERY DAY TAKE ONE TABLET BY MOUTH EVERY DAY SOLD: 01/16/2021 [facility] Aluminum Acetate - Aluminum Acetate - 01/13/2021 12:00:00 AM EDT active Aluminum Acetate - eCW1 ([facility]) Aspirin 81 MG Delayed Release Oral Tablet Aspirin 81 81 MG A spirin 81 81 MG 01/13/2021 12:00:00 AM EDT 1.0 {tablet} active Aspirin 81 81 MG eCW1 ([facility]) Aspirin 81 MG Delayed Release Oral Tablet Aspirin 81 81 MG A spirin 81 81 MG 01/13/2021 12:00:00 AM EDT 1.0 {tablet} active Aspirin 81 81 MG eCW1 ([facility]) Cholecalciferol 1.25 MG (84210 UT) UNK 01/13/2021 12:00:00 AM EDT 1.0 {capsule} active Cholecalciferol 1.25 M G (07047 UT) eCW1 ([facility]) Aspirin 81 MG Delayed Release Oral Tablet Aspirin 81 81 MG A spirin 81 81 MG 01/13/2021 12:00:00 AM EDT 1.0 {tablet} active Aspirin 81 81 MG eCW1 ([facility]) Cholecalciferol 1.25 MG (87922 UT) UNK 01/13/2021 12:00:00 AM EDT 1.0 {capsule} active Cholecalciferol 1.25 M G (73081 UT) eCW1 ([facility]) Cholecalciferol 1.25 MG (53234 UT) UNK 01/13/2021 12:00:00 AM EDT 1.0 {capsule} active Cholecalciferol 1.25 M G (01890 UT) eCW1 ([facility]) Aluminum Acetate - Aluminum Acetate - 01/13/2021 12:00:00 AM EDT active Aluminum Acetate - eCW1 ([facility]) Aluminum Acetate - Aluminum Acetate - 01/13/2021 12:00:00 AM EDT active Aluminum Acetate - eCW1 ([facility]) 75 mg 01/09/2021 12:00:00 AM EDT tablet 14 TAKE ONE TABLET BY MOUTH EVERY DAY TAKE ONE TABLET BY MOUTH EVERY DAY SOLD: 01/09/2021 [facility] 20 mg 01/09/2021 12:00:00 AM EDT tablet 14 TAKE ONE TABLET BY MOUTH EVERY DAY TAKE ONE TABLET BY MOUTH EVERY DAY SOLD: 01/09/2021 [facility] 75 mg 12/25/2020 12:00:00 AM EST tablet 14 TAKE ONE TABLET BY MOUTH EVERY DAY TAKE ONE TABLET BY MOUTH EVERY DAY SOLD: 12/25/2020 [facility] 20 mg 12/25/2020 12:00:00 AM EST tablet 14 TAKE ONE TABLET BY MOUTH EVERY DAY TAKE ONE TABLET BY MOUTH EVERY DAY SOLD: 12/25/2020 [facility] Insurance Providers Payer name Policy type / Coverage type Policy ID Covered alliance party ID Covered alliance party's relationship to lyons Policy Lyons Plan Information Medicaid P [id number] S [id number] Medicaid S [id number] S [id number] Managed Care - Community Plan [facility] P [id number] S [id number] Medicaid S [id number] S [id number] Managed Care - Community Plan [facility] P [id number] S [id number] Managed Care - Community Plan [facility] P [id number] S [id number] [facility] COMMUNITY PLAN [facility] [id number] SP [id number] Medicaid S [id number] S [id number] [facility] COMMUNITY PLAN [facility] [id number] SP [id number] [facility] COMMUNITY PLAN [facility] [id number] SP [id number] Managed Care - Community Plan [facility] P [id number] S [id number] Managed Care - [facility] Community Plan P [id number] S [id number] [facility] MEDICAID [id number] Faina [id number] [facility] MEDICAID [id number] xxxxxxxxx [id number] Managed Care - [facility] Community Plan P [id number] S [id number] Medicaid S [id number] S [id number] UN COMMUNITY PLAN MCDO [id number] SP [id number] [id number] SP [id number] [facility](MCAID) O [id number] S [id number] [facility] Care Hmo Commercial [id number] Self [id number] [facility] COMMUNITY PLAN MCDHMO [id number] SP [id number] [employer] COMMUNITY PLAN MCDHMO [id number] SP [id number] [facility] [id number] SP [id number] Managed Care - Community Plan [facility] P [id number] S [id number] [employer] COMMUNITY PLAN MCDHMO [id number] SP [id number] [employer] COMMUNITY PLAN MCDHMO [id number] SP [id number] [employer] PLAN [id number] SP [id number] MEDICAID [id number] SP [id number] Managed Care BCBS S [id number] S [id number] [facility](MCAID) P [id number] S [id number] [employer]BS P [id number] S [id number] Problems, Conditions, and Diagnoses Code Display Name Description Problem Type Effective Dates Data Source(s) 989126720 Tobacco user Tobacco User Problem 08/10/2021 12:00:00 A M EDT Z[facility] ([facility]) 734365043 Tobacco user Tobacco User Problem 08/10/2021 12:00:00 A M EDT [facility]) E78.5 Hyperlipidemia Hyperlipidemia Problem 01/13/2021 12:00: 00 AM EDT eCW1 ([facility]) I25.10 Coronary artery disease CAD (coronary artery disease) Problem 01/13/2021 12:00:00 AM EDT eCW1 ([facility]) F31.9 Bipolar disorder Bipolar disorder Problem 01/13/2021 12 :00:00 AM EDT eCW1 ([facility]) I50.40 Acute combined systolic and diastolic he art failure Combined congestive systolic and diastolic heart failure Problem 01/13/2021 12:00:00 AM EDT eCW1 ([facility]) E55.9 37278977 Vitamin D deficiency, unspecified Problem 01/13/2021 12:00:00 AM EDT eCW1 ([facility]) I10 27746019 Essential hypertension Problem 01/13/2021 12 :00:00 AM EDT eCW1 ([facility]) F17.200 15275754 Nicotine use disorder Problem 01/13/2021 12: 00:00 AM EDT eCW1 ([facility]) 666382574 SNOMED CT Concept SNOMED CT Concept Problem 07/31 06:42:24 PM EDT [facility] ([facility]) 23645047 Crohn's disease Crohn's Disease Problem 07/31/2020 06:4 2:24 PM EDT [place] ([facility]) 802623043 Acute ST segment elevation myocardial in farction Acute ST Segment Elevation Myocardial Infarction Problem 07/31/2020 06:42:24 PM EDT A THENA ([facility]) 115505761 SNOMED CT Concept SNOMED CT Concept Problem 07/31 06:42:24 PM EDT Z[facility]ANNA ([facility]) 57685894 Crohn's disease Crohn's Disease Problem 07/31/2020 06:4 2:24 PM EDT [facility] ([facility]) [id number] Acute ST segment elevation myocardial in farction Acute ST Segment Elevation Myocardial Infarction Problem 07/31/2020 06:42:24 PM EDT A THENA ([facility]) Surgeries/Procedures No Information Results ID Date Data Source [id number] 08/10/2021 12:00:00 AM EDT [facility] ([facility]) Name Value Range Interpretation Code Description Data Stephanie rce(s) Supporting Document(s) Procedure Social History Code Duration Value Status Description Data Source(s ) Smoking 02/06/2021 12:00:00 AM EDT Current Smoker completed Curre nt Smoker eCW1 ([facility]) Smoking 01/13/2021 12:00:00 AM EDT Current Smoker completed Curre nt Smoker eCW1 ([facility]) Smoking 01/13/2021 12:00:00 AM EDT Current Smoker completed Curre nt Smoker eCW1 ([facility]) Vital Signs ID Date Data Source UNK Name Value Range Interpretation Code Description Data Source(s) Diastolic blood pressure 91 mm[Hg] 91 mm[Hg] Z[facility]NA ([facility]) Diastolic blood pressure 80 mm[Hg] 80 mm[Hg] [facility] ([facility]) Body height 64 [in_i] 64 [in_i] [facility] ([facility]) Systolic blood pressure 144 mm[Hg] 144 mm[Hg] A [facility] ([facility]) Body mass index (BMI) [Ratio] 20 kg/m2 20 kg/ m2 [facility] ([facility]) Systolic blood pressure 140 mm[Hg] 140 mm[Hg] A [facility] ([facility]) Body weight 1864 [oz_av] 1864 [oz_av] [facility]ANNA ([facility]) Diastolic blood pressure 86 mm[Hg] 86 mm[Hg] [facility] ([facility]) Diastolic blood pressure 97 mm[Hg] 97 mm[Hg] [facility] ([facility]) Systolic blood pressure 182 mm[Hg] 182 mm[Hg] A [facility] ([facility]) Body height 64 [in_i] 64 [in_i] [facility] ([facility]) Systolic blood pressure 180 mm[Hg] 180 mm[Hg] A [facility] ([facility]) Body mass index (BMI) [Ratio] 20.5 kg/m2 20.5 k g/m2 [facility] ([facility]) Body weight 1908 [oz_av] 1908 [oz_av] Z[facility]ANNA ([facility]) Diastolic blood pressure 86 mm[Hg] 86 mm[Hg] [facility] ([facility]) Diastolic blood pressure 97 mm[Hg] 97 mm[Hg] [facility] ([facility]) Body height 64 [in_i] 64 [in_i] [facility] ([facility]) Body mass index (BMI) [Ratio] 20.5 kg/m2 20.5 k g/m2 [facility] ([facility]) Systolic blood pressure 182 mm[Hg] 182 mm[Hg] A [facility] ([facility]) Systolic blood pressure 180 mm[Hg] 180 mm[Hg] A [facility] ([facility]) Body weight 1908 [oz_av] 1908 [oz_av] ZHANNA ([facility]) Body weight 125.8 [lb_av] 125.8 [lb_av] eCW1 ([facility]) Body height 64.5 [in_i] 64.5 [in_i] eCW1 [facility] Body mass index (BMI) [Ratio] 21.26 kg/m2 21.26 kg/m2 eCW1 ([facility]) Heart rate 96 /min 96 /min eCW1 ([facility]) Respiratory rate 18 /min 18 /min eCW1 ([facility]) Body temperature 97.5 [degF] 97.5 [degF] eCW1 ( [facility]) Systolic blood pressure 118 mm[Hg] 118 mm[Hg] e CW1 ([facility]) Diastolic blood pressure 76 mm[Hg] 76 mm[Hg] eCW1 ([facility]) Patient Treatment Plan of Care Planned Activity Planned Date Details Description Data Source (s) Cholecalciferol 1.25 MG (51185 UT) 01/13/2021 12:00:00 AM EDT eCW1 ([facility]) Aluminum Acetate - 01/13/2021 12:00:00 AM EDT eCW1 ([facility]) Aspirin 81 MG Delayed Release Oral Tablet 01/13/2021 12:00:00 AM ED T eCW1 ([facility]) Cholecalciferol 1.25 MG (15046 UT) 01/13/2021 12:00:00 AM EDT eCW1 ([facility]) Aluminum Acetate - 01/13/2021 12:00:00 AM EDT eCW1 ([facility]) Aspirin 81 MG Delayed Release Oral Tablet 01/13/2021 12:00:00 AM ED T eCW1 ([facility])
[2021-08-28 17:05] LABS: BASO % 0.5 % (0.0-1.0); EOS # 0.1 10^3/uL (0.0-0.5); EOS % 0.7 % (0.0-3.0); HEMATOCRIT 43.6 % (36.0-47.0); HEMOGLOBIN 14.9 g/dl (12.0-15.5); LYMPH # 1.8 10^3/uL (1.5-5.0); LYMPH % 23.7 % (24.0-44.0); MEAN CORPUSCULAR HEMOGLOBIN 30.8 pg (27.0-33.0); MEAN CORPUSCULAR HGB CONC 34.2 g/dl (32.0-36.5); MEAN CORPUSCULAR VOLUME 90.1 fl (80.0-96.0); MONO # 0.6 10^3/uL (0.0-0.8); MONO % 7.4 % (2.0-8.0); NEUTROPHILS # 5.1 10^3/uL (1.5-8.5); NEUTROPHILS % 67.3 % (36.0-66.0); PLATELET COUNT, AUTOMATED 230 10^3/uL (150-450); RED BLOOD COUNT 4.84 10^6/uL (4.00-5.40); WHITE BLOOD COUNT 7.5 10^3/uL (4.0-10.0)
[2021-08-28 17:12] LABS: INR 1.02; PARTIAL THROMBOPLASTIN TIME 26.9 SECONDS (25.9-37.0); PROTHROMBIN TIME 13.8 SECONDS (12.7-14.5)
[2021-08-28 17:24] LABS: AMPHETAMINES LEVEL URINE NEGATIVE (NEGATIVE); BARBITURATES URINE NEGATIVE (NEGATIVE); BENZODIAZEPINES URINE NEGATIVE (NEGATIVE); CANNABINOIDS URINE POSITIVE (NEGATIVE); COCAINE METABOLITE URINE NEGATIVE (NEGATIVE); METHADONE URINE NEGATIVE (NEGATIVE); OPIATES URINE NEGATIVE (NEGATIVE); PHENCYCLIDINE URINE NEGATIVE (NEGATIVE)
[2021-08-28 17:42] LABS: HCG, SERUM QUALITATIVE NEGATIVE (NEGATIVE)
[2021-08-28] MEDS ORDERED: BUPR1FIL (17:45)
[2021-08-28 17:46] LABS: ALBUMIN 3.9 GM/DL (3.2-5.2); ALT/SGPT 30 U/L (12-78); BILIRUBIN,DIRECT 0.1 MG/DL (0.0-0.2); BILIRUBIN,TOTAL 0.5 MG/DL (0.2-1.0); BLOOD UREA NITROGEN 10 MG/DL (7-18); CALCIUM LEVEL 9.2 MG/DL (8.5-10.1); CARBON DIOXIDE LEVEL 25 MEQ/L (21-32); CHLORIDE LEVEL 111 MEQ/L (98-107); CK-MB VALUE MASS 1.2 NG/ML (<3.6); CPK CREATINE PHOSPHOKINASE 92 U/L (26-192); CREATININE FOR GFR 0.92 MG/DL (0.55-1.30); ETHYL ALCOHOL (ETHANOL) < 0.003 % (0.000-0.010); FREE T4 1.01 NG/DL (0.76-1.46); GLOMERULAR FILTRATION RATE > 60.0 (>58); GLUCOSE, FASTING 99 MG/DL (70-100); LIPASE 58 U/L (73-393); NT-PRO BNP 125 PG/ML (<125); POTASSIUM SERUM 3.5 MEQ/L (3.5-5.1); SODIUM LEVEL 143 MEQ/L (136-145); TOTAL PROTEIN 6.8 GM/DL (6.4-8.2); TROPONIN I < 0.02 NG/ML (< 0.10)
[2021-08-28] MEDS ORDERED: ISOVUE-370 76% 100ML VIAL As Ordered ONE (17:56)
--- NOTE | 2021-08-28 18:25 | REPVR ---
PROCEDURE INFORMATION: Exam: CTA Chest With Contrast Exam date and time: 08/28/2021 5:52 PM Age: 50 years old Clinical indication: Pain; Other: Gen; Additional info: Chest pain, palpitations TECHNIQUE: Imaging protocol: Computed tomographic angiography of the chest with contrast. 3D rendering (Not supervised by radiologist): MIP and/or 3D reconstructed images were created by the technologist. Radiation optimization: All CT scans at this facility use at least one of these dose optimization techniques: automated exposure control; mA and/or kV adjustment per patient size (includes targeted exams where dose is matched to clinical indication); or iterative reconstruction. Contrast material: ISOVUE 370; Contrast volume: 75 ml; Contrast route: INTRAVENOUS (IV); COMPARISON: CR PORTABLE CHEST X-RAY 08/28/2021 4:28 PM FINDINGS: Pulmonary arteries: There are no pulmonary emboli. Aorta: There is no aortic dissection or aneurysm. Lungs: Minimal centrilobular emphysematous changes most pronounced in the upper lung zones. Mild bilateral apical pleuroparenchymal scarring. Calcified granulomas right upper and both lower lobes. Pleural spaces: Unremarkable. No pneumothorax. No pleural effusion. Heart: Unremarkable. No cardiomegaly. No pericardial effusion. Lymph nodes: Bilateral calcified hilar lymph nodes. Bones/joints: Unremarkable. No acute fracture. Soft tissues: Unremarkable. IMPRESSION: 1. Minimal centrilobular emphysematous changes most pronounced in the upper lung zones. 2. Calcified granulomas right upper and both lower lobes consistent with remote granulomatous infection. 3. There is no aortic dissection or aneurysm. 4. There are no pulmonary emboli. 5. No acute pulmonary parenchymal abnormalities. Electronically signed by: Charly Freedman On 08/28/2021 18:24:50 PM
[2021-08-28 21:00] LABS: CK-MB VALUE MASS 1.4 NG/ML (<3.6); CPK CREATINE PHOSPHOKINASE 83 U/L (26-192); MB/CK RELATIVE INDEX 1.69 (< OR =4); TROPONIN I < 0.02 NG/ML (< 0.10)
[2021-08-28 21:15] VITALS: BP 135/73
--- NOTE | 2021-08-29 07:06 | ECGEPIP ---
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
== END 2021-08-28 22:03 | disposition home or self-care (01) ==
LOC: EDBD 15:57 → M ED 15:57
DX: R07.89 Other chest pain (principal); R00.2 Palpitations; I48.91 Unspecified atrial fibrillation; I50.9 Heart failure, unspecified; I10 Essential (primary) hypertension; F19.10 Other psychoactive substance abuse, uncomplicated; F12.10 Cannabis abuse, uncomplicated; F17.200 Nicotine dependence, unspecified, uncomplicated; Z79.02 Long term (current) use of antithrombotics/antiplatelets; Z79.82 Long term (current) use of aspirin; Z79.899 Other long term (current) drug therapy; Z88.0 Allergy status to penicillin; Z91.89 Other specified personal risk factors, not elsewhere classified; Z91.030 Bee allergy status; Z91.040 Latex allergy status; Z88.7 Allergy status to serum and vaccine
CPT/HCPCS: 71045; 71275; 80048; 80076; 80307; 82077; 82550; 82553; 83690; 83880; 84439; 84443; 84703; 85025; 85610; 85730; 93005; 93041; 94760; 99285; Q9967

== ENCOUNTER → 2022-03-30 | Outpatient (CLI) | payer OTHER ==
[~2022-03-30] MED LIST changes: +BUPR1FIL
[2022-03-30 09:05] LABS: APPEARANCE, URINE CLEAR (CLEAR); BACTERIA, URINE AUTO 1+ (NEGATIVE); BILIRUBIN, URINE AUTO NEGATIVE (NEGATIVE); BLOOD, URINE BLOOD NEGATIVE (NEGATIVE); COLOR, URINE YELLOW (YELLOW); GLUCOSE, URINE (UA) AUTO NEGATIVE (NEGATIVE); KETONE, URINE AUTO NEGATIVE (NEGATIVE); LEUKOCYTE ESTERASE, URINE AUTO NEGATIVE (NEGATIVE); NITRITE, URINE AUTO NEGATIVE (NEGATIVE); PROTEIN, URINE AUTO NEGATIVE (NEGATIVE); RBC, URINE AUTO 0 /HPF (0-3); SPECIFIC GRAVITY URINE AUTO 1.013 (1.002-1.035); SQUAMOUS EPITHELIAL CELL UR AU 1 /HPF (0-6); UROBILINOGEN, URINE AUTO 0.2 mg/dL (0.0-2.0); WBC, URINE AUTO 0 /HPF (0-3)
[2022-03-30 09:06] LABS: HEMATOCRIT 45.7 % (36.0-47.0); HEMOGLOBIN 15.2 g/dl (12.0-15.5); MEAN CORPUSCULAR HEMOGLOBIN 30.8 pg (27.0-33.0); MEAN CORPUSCULAR HGB CONC 33.3 g/dl (32.0-36.5); MEAN CORPUSCULAR VOLUME 92.5 fl (80.0-96.0); PLATELET COUNT, AUTOMATED 305 10^3/uL (150-450); RED BLOOD COUNT 4.94 10^6/uL (4.00-5.40); WHITE BLOOD COUNT 12.4 10^3/uL (4.0-10.0)
[2022-03-30 09:36] LABS: ALBUMIN 4.3 GM/DL (3.2-5.2); ALT/SGPT 26 U/L (12-78); BILIRUBIN,TOTAL 0.3 MG/DL (0.2-1.0); BLOOD UREA NITROGEN 15 MG/DL (7-18); CALCIUM LEVEL 10.3 MG/DL (8.5-10.1); CARBON DIOXIDE LEVEL 28 MEQ/L (21-32); CHLORIDE LEVEL 107 MEQ/L (98-107); CHOLESTEROL LEVEL 147 MG/DL (< 200); CHOLESTEROL LEVEL 147 MG/DL (<200); CHOLESTEROL RISK RATIO 2.194 (<5); CPK CREATINE PHOSPHOKINASE 57 U/L (26-192); CREATININE FOR GFR 0.91 MG/DL (0.55-1.30); FREE T4 0.86 NG/DL (0.76-1.46); GLOMERULAR FILTRATION RATE > 60.0 (>51); GLUCOSE, FASTING 100 MG/DL (70-100); HDL CHOLESTEROL 67 MG/DL (>40); IRON (FE) 84 UG/DL (50-170); LDH LACTATE DEHYDROGENASE 142 U/L (84-246); LDL CHOLESTEROL 62 MG/DL (<100); MAGNESIUM LEVEL 2.5 MG/DL (1.8-2.4); NON-HDL-C 80 MG/DL; NT-PRO BNP 189 PG/ML (<125); PHOSPHORUS LEVEL 4.2 MG/DL (2.5-4.9); POTASSIUM SERUM 4.5 MEQ/L (3.5-5.1); RHEUMATOID FACTOR QUANT < 10.0 IU/ML (<15.0); SODIUM LEVEL 141 MEQ/L (136-145); THYROID STIMULATING HORMONE 0.922 uIU/ML (0.358-3.740); TOTAL PROTEIN 7.3 GM/DL (6.4-8.2); TRIGLYCERIDES LEVEL 88 MG/DL (<150)
[2022-03-30 10:13] LABS: HEMOGLOBIN A1c 5.3 %
[2022-03-31 11:52] LABS: DRVV SCREEN 31.6 SEC
[2022-03-31 11:53] LABS: PTT LUPUS TYPE ANTICOAG SCREEN 0.8 (0-1.2)
[2022-03-31 13:07] LABS: ANTINUCLEAR ANTIBODIES DIRECT Negative (Negative)
== END ==
LOC: M RAD 08:05
PROVIDERS: ATTEND Internal Medicine Cardiovascular Disease
DX: J44.9 Chronic obstructive pulmonary disease, unspecified (principal)

== ENCOUNTER → 2022-03-30 | Outpatient (REF) | payer OTHER | LOC: M SFHCDERM 14:14 | PROVIDERS: ATTEND Nurse Practitioner Family | DX: L57.8 Other skin changes due to chronic exposure to nonionizing radiation (principal); L57.0 Actinic keratosis ==

== ENCOUNTER → 2022-04-12 | Outpatient (CLI) | payer OTHER | LOC: M RAD 15:54 | PROVIDERS: ATTEND Family Medicine Addiction Medicine | DX: S09.90XA Unspecified injury of head, initial encounter (principal); X58.XXXA Exposure to other specified factors, initial encounter; Y92.9 Unspecified place or not applicable; Y93.9 Activity, unspecified; Y99.9 Unspecified external cause status ==

== ENCOUNTER → 2022-08-26 | Outpatient (REF) | payer OTHER ==
[~2022-08-26] MED LIST changes: +CLOP75TA99 PO; -PLAV1TAB2 PO
[2022-08-26 17:48] LABS: ALBUMIN 4.2 GM/DL (3.2-5.2); ALT/SGPT 51 U/L (12-78); BILIRUBIN,TOTAL 0.4 MG/DL (0.2-1.0); BLOOD UREA NITROGEN 13 MG/DL (7-18); CALCIUM LEVEL 9.4 MG/DL (8.5-10.1); CARBON DIOXIDE LEVEL 27 MEQ/L (21-32); CHLORIDE LEVEL 105 MEQ/L (98-107); CHOLESTEROL LEVEL 171 MG/DL (<200); CHOLESTEROL RISK RATIO 2.898 (<5); CREATININE FOR GFR 0.98 MG/DL (0.55-1.30); GLOMERULAR FILTRATION RATE > 60.0 (>51); GLUCOSE, FASTING 102 MG/DL (70-100); HDL CHOLESTEROL 59 MG/DL (>40); LDL CHOLESTEROL 87 MG/DL (<100); NON-HDL-C 112 MG/DL; POTASSIUM SERUM 4.3 MEQ/L (3.5-5.1); SODIUM LEVEL 138 MEQ/L (136-145); TOTAL PROTEIN 7.2 GM/DL (6.4-8.2); TRIGLYCERIDES LEVEL 123 MG/DL (<150)
== END ==
LOC: M LAB REF 16:42
PROVIDERS: ATTEND Family Medicine Addiction Medicine
DX: E78.5 Hyperlipidemia, unspecified (principal)

== ENCOUNTER → 2023-03-28 | Outpatient (CLI) | payer OTHER | LOC: M SLEEP HO 11:11 | PROVIDERS: ATTEND Nurse Practitioner Adult Health | DX: R06.83 Snoring (principal) ==

== ENCOUNTER 2024-02-03 02:33 | Emergency (ER) | payer OTHER ==
[~2024-02-03] VITALS: Ht 162.6 cm; Wt 55.6 kg
[~2024-02-03 02:33] MED LIST changes: +ASPI81CH33 PO; -GABA-283 PO; +GABA-284 PO
[2024-02-03 02:34] VITALS: BP 123/55; TEMP 97.1; O2SAT 97
[2024-02-03] MEDS ORDERED: HYDR12.55 PO (10:45)
[2024-02-03] MEDS ORDERED: METO1TAB32 PO (10:45)
[2024-02-03] MEDS ORDERED: ADDE10CA3 PO (10:45)
[2024-02-03] MEDS ORDERED: CLON0.25 PO (10:45)
[2024-02-03] MEDS ORDERED: NOXI1TAB PO (10:45)
[2024-02-03] MEDS ORDERED: ATOR1TAB21 PO (10:45)
[2024-02-03] MEDS ORDERED: VENTAER INH (10:45)
[2024-02-03] MEDS ORDERED: LAMO100T80 PO (10:45)
[2024-02-03] MEDS ORDERED: ADDE1TAB14 PO (10:45)
== END 2024-02-03 03:39 | disposition home or self-care (01) ==
LOC: M ED 02:33
DX: H92.03 Otalgia, bilateral (principal); I50.9 Heart failure, unspecified; I10 Essential (primary) hypertension; Z79.82 Long term (current) use of aspirin; Z79.899 Other long term (current) drug therapy; Z88.0 Allergy status to penicillin; Z88.7 Allergy status to serum and vaccine; Z91.89 Other specified personal risk factors, not elsewhere classified; Z91.030 Bee allergy status; Z91.040 Latex allergy status

== ENCOUNTER → 2024-02-09 | Outpatient (CLI) | payer OTHER ==
[~2024-02-09] MED LIST changes: +ADDE10CA3 PO; +ADDE1TAB14 PO; +ATOR1TAB21 PO; +CLON0.25 PO; +HYDR12.55 PO; +LAMO100T80 PO; +METO1TAB32 PO; +NOXI1TAB PO; +VENTAER INH
[2024-02-09 09:17] LABS: BASO # 0.1 10^3/uL (0.0-0.2); BASO % 0.7 % (0.0-1.0); EOS # 0.1 10^3/uL (0.0-0.5); EOS % 1.1 % (0.0-3.0); HEMATOCRIT 46.6 % (36.0-47.0); HEMOGLOBIN 15.6 g/dl (12.0-15.5); LYMPH # 2.7 10^3/uL (1.5-5.0); LYMPH % 38.3 % (24.0-44.0); MEAN CORPUSCULAR HEMOGLOBIN 30.5 pg (27.0-33.0); MEAN CORPUSCULAR HGB CONC 33.5 g/dl (32.0-36.5); MONO # 0.7 10^3/uL (0.0-0.8); MONO % 9.1 % (2.0-8.0); NEUTROPHILS # 3.6 10^3/uL (1.5-8.5); NEUTROPHILS % 50.7 % (36.0-66.0); PLATELET COUNT, AUTOMATED 297 10^3/uL (150-450); RED BLOOD COUNT 5.12 10^6/uL (4.00-5.40); WHITE BLOOD COUNT 7.2 10^3/uL (4.0-10.0)
[2024-02-09 09:36] LABS: ALBUMIN 3.9 G/DL (3.2-5.2); ALKALINE PHOSPHATASE 109 U/L (46-116); ALT/SGPT 31 U/L (7.0-40); AST/SGOT 48 U/L (<34); BILIRUBIN,TOTAL 0.6 MG/DL (0.3-1.2); BLOOD UREA NITROGEN 16 MG/DL (9-23); CALCIUM LEVEL 9.4 MG/DL (8.5-10.1); CARBON DIOXIDE LEVEL 24 MMOL/L (20-31); CHLORIDE LEVEL 108 MMOL/L (98-107); CREATININE FOR GFR 0.87 MG/DL (0.55-1.30); GLOMERULAR FILTRATION RATE > 60.0 (>51); GLUCOSE, FASTING 91 MG/DL (60-100); SODIUM LEVEL 137 MMOL/L (136-145); TOTAL PROTEIN 6.3 G/DL (5.7-8.2)
== END ==
LOC: M LAB 08:20
PROVIDERS: ATTEND Family Medicine Addiction Medicine
DX: R19.5 Other fecal abnormalities (principal)

== ENCOUNTER → 2024-02-10 | Outpatient (CLI) | payer OTHER | LOC: M RAD 13:14 | PROVIDERS: ATTEND Family Medicine Addiction Medicine | DX: R19.5 Other fecal abnormalities (principal) ==

== ENCOUNTER 2024-02-14 07:34 | Day surgery (SDC) | payer OTHER ==
[~2024-02-14] VITALS: Ht 162.6 cm; Wt 53.9 kg
[2024-02-14] MEDS: NS 1,000 ML IV ONE (08:01)
[2024-02-14 08:52] VITALS: TEMP 97.4
[2024-02-14 09:04] VITALS: BP 176/79; O2SAT 98
[2024-02-14] MEDS ORDERED: propofoL 500 MG/50 ML VIAL As Ordered ONE (09:43)
== END 2024-02-14 09:13 | disposition home or self-care (01) ==
LOC: M OPP 07:34
PROVIDERS: ATTEND Internal Medicine Gastroenterology
DX: R19.5 Other fecal abnormalities (principal); K57.30 Diverticulosis of large intestine without perforation or abscess without bleeding; K64.8 Other hemorrhoids; K58.9 Irritable bowel syndrome, unspecified; K21.9 Gastro-esophageal reflux disease without esophagitis; I48.91 Unspecified atrial fibrillation; I25.2 Old myocardial infarction; Z95.5 Presence of coronary angioplasty implant and graft; I10 Essential (primary) hypertension; E78.00 Pure hypercholesterolemia, unspecified; Z79.899 Other long term (current) drug therapy; Z79.02 Long term (current) use of antithrombotics/antiplatelets; Z79.82 Long term (current) use of aspirin; Z88.0 Allergy status to penicillin; Z91.040 Latex allergy status; Z91.030 Bee allergy status; Z88.7 Allergy status to serum and vaccine

== ENCOUNTER → 2024-03-08 | Outpatient (CLI) | payer OTHER ==
[2024-03-08 10:49] LABS: BASO % 0.5 % (0.0-1.0); EOS # 0.1 10^3/uL (0.0-0.5); HEMATOCRIT 42.9 % (36.0-47.0); HEMOGLOBIN 14.7 g/dl (12.0-15.5); LYMPH # 2.1 10^3/uL (1.5-5.0); MEAN CORPUSCULAR HEMOGLOBIN 30.8 pg (27.0-33.0); MEAN CORPUSCULAR HGB CONC 34.3 g/dl (32.0-36.5); MEAN CORPUSCULAR VOLUME 89.7 fl (80.0-96.0); MONO # 0.5 10^3/uL (0.0-0.8); MONO % 6.5 % (2.0-8.0); NEUTROPHILS # 5.2 10^3/uL (1.5-8.5); NEUTROPHILS % 65.7 % (36.0-66.0); PLATELET COUNT, AUTOMATED 366 10^3/uL (150-450); RED BLOOD COUNT 4.78 10^6/uL (4.00-5.40)
[2024-03-08 11:12] LABS: BLOOD UREA NITROGEN 11 MG/DL (9-23); CALCIUM LEVEL 9.2 MG/DL (8.5-10.1); CARBON DIOXIDE LEVEL 26 MMOL/L (20-31); CHLORIDE LEVEL 112 MMOL/L (98-107); CREATININE FOR GFR 0.94 MG/DL (0.55-1.30); GLOMERULAR FILTRATION RATE > 60.0 (>51); GLUCOSE, FASTING 101 MG/DL (60-100); SODIUM LEVEL 143 MMOL/L (136-145)
== END ==
LOC: M LAB 10:10
PROVIDERS: ATTEND Internal Medicine Cardiovascular Disease
DX: R07.9 Chest pain, unspecified (principal); I34.0 Nonrheumatic mitral (valve) insufficiency; I25.9 Chronic ischemic heart disease, unspecified

== ENCOUNTER → 2024-04-27 | Outpatient (CLI) | payer OTHER ==
[~2024-04-27] MED LIST changes: +ISOVUE-370 76% 100ML VIAL ONE
== END ==
LOC: M PLAIMG 08:30
PROVIDERS: ATTEND Surgery Vascular Surgery
DX: I72.1 Aneurysm of artery of upper extremity (principal); M79.601 Pain in right arm
CPT/HCPCS: 73206; Q9967

== ENCOUNTER → 2025-01-02 | Outpatient (CLI) | payer OTHER ==
[~2025-01-02] MED LIST changes: -ISOVUE-370 76% 100ML VIAL ONE
== END ==
LOC: M WHC 10:17
PROVIDERS: ATTEND Family Medicine Addiction Medicine
DX: N63.10 Unspecified lump in the right breast, unspecified quadrant (principal)

== ENCOUNTER → 2025-01-17 | Outpatient (REF) | payer OTHER ==
[2025-01-17 12:44] LABS: BASO % 0.7 % (0.0-1.0); EOS # 0.1 10^3/uL (0.0-0.5); EOS % 1.5 % (0.0-3.0); HEMATOCRIT 44.9 % (36.0-47.0); HEMOGLOBIN 15.1 g/dl (12.0-15.5); LYMPH # 2.5 10^3/uL (1.5-5.0); LYMPH % 40.5 % (24.0-44.0); MEAN CORPUSCULAR HEMOGLOBIN 31.3 pg (27.0-33.0); MEAN CORPUSCULAR HGB CONC 33.6 g/dl (32.0-36.5); MONO # 0.6 10^3/uL (0.0-0.8); MONO % 9.1 % (2.0-8.0); PLATELET COUNT, AUTOMATED 263 10^3/uL (150-450); RED BLOOD COUNT 4.83 10^6/uL (4.00-5.40); WHITE BLOOD COUNT 6.1 10^3/uL (4.0-10.0)
[2025-01-17 12:50] LABS: ERYTHROCYTE SEDIMENTATION RATE < 1 mm/hr (0-30)
[2025-01-17 12:58] LABS: ALBUMIN 4.1 G/DL (3.2-5.2); ALKALINE PHOSPHATASE 105 U/L (35-104); ALT/SGPT 33 U/L (7.0-40); AST/SGOT 20 U/L (<34); BILIRUBIN,TOTAL 0.5 MG/DL (0.3-1.2); BLOOD UREA NITROGEN 13 MG/DL (9-23); CALCIUM LEVEL 9.8 MG/DL (8.5-10.1); CARBON DIOXIDE LEVEL 32 MMOL/L (20-31); CHLORIDE LEVEL 108 MMOL/L (98-107); CHOLESTEROL LEVEL 142 MG/DL (<200); CHOLESTEROL RISK RATIO 2.78 (<5); CREATININE FOR GFR 0.92 MG/DL (0.55-1.30); GLOMERULAR FILTRATION RATE > 60.0 (>51); GLUCOSE, FASTING 86 MG/DL (60-100); LDL CHOLESTEROL 72.4 MG/DL (<100); POTASSIUM SERUM 5.3 MMOL/L (3.5-5.1); SODIUM LEVEL 142 MMOL/L (136-145); TOTAL PROTEIN 6.8 G/DL (5.7-8.2); TRIGLYCERIDES LEVEL 93 MG/DL (<150)
[2025-01-17 13:00] LABS: TOTAL 25(OH) VITAMIN D 31.6 NG/ML (20.0-100.0)
== END ==
LOC: M LAB REF 12:04
PROVIDERS: ATTEND Family Medicine Addiction Medicine
DX: I10 Essential (primary) hypertension (principal)